=== PATIENT | male | born 1960 | race Caucasian/White ===

== ENCOUNTER 2017-03-09 19:25 | Emergency (ER) | payer SELFPAY ==
[~2017-03-09] VITALS: Ht 185.4 cm; Wt 78.0 kg
[2017-03-09 19:28] VITALS: BP 156/98
[2017-03-09 19:59] LABS: BASOPHILS % (AUTO) 0.5 % (0.0-2.0); HEMATOCRIT 41.6 % (41-53); HEMOGLOBIN 14.2 g/dL (13.5-17.5); LYMPHOCYTES # (AUTO) 1.4 K/uL (1.0-4.8); LYMPHOCYTES % (AUTO) 18.3 % (22.0-44.0); MEAN CORPUSCULAR HEMOGLOBIN 32.1 pg (26.0-34.0); MEAN CORPUSCULAR VOLUME 95 fL (80-100); MONOCYTES # (AUTO) 0.7 K/uL (0.1-1.0); MONOCYTES % (AUTO) 8.9 % (2.0-9.0); NEUTROPHILS # (AUTO) 5.5 K/uL (1.8-7.7); NEUTROPHILS % (AUTO) 71.3 % (40.0-70.0); PLATELET COUNT (AUTO) 312 K/uL (150-450); RED CELL DISTRIBUTION WIDTH 13.2 % (11.5-14.5)
[2017-03-09 20:21] LABS: ANION GAP -6 mmol/L (8-16); CALCIUM, TOTAL 9.3 mg/dL (8.8-10.5); CARBON DIOXIDE 35 mmol/L (22-29); CHLORIDE 110 mmol/L (98-107); CREATININE 0.93 mg/dL (0.60-1.30); GLOMERULAR FILTR. RATE CALC > 60 mL/min (>60); GLUCOSE,RANDOM 108 mg/dL (70-110); POTASSIUM 3.7 mmol/L (3.5-5.1); SODIUM SERUM 139 mmol/L (136-145); UREA NITROGEN, BLOOD 18 mg/dL (7-18)
[2017-03-09 20:27] LABS: ALANINE AMINOTRANSFERASE 122 U/L (12-78); ALBUMIN 3.7 g/dL (3.4-5.0); ALKALINE PHOSPHATASE 61 U/L (46-116); ASPARTATE AMINOTRANSFERASE 97 U/L (15-37); BILIRUBIN,TOTAL 1.1 mg/dL (0.1-1.0); TOTAL PROTEIN, SERUM 7.4 g/dL (6.4-8.2)
== END 2017-03-09 22:40 | disposition left against medical advice (07) ==
LOC: EMS 19:28
DX: Z53.21 Procedure and treatment not carried out due to patient leaving prior to being seen by health care provider (principal)
CPT/HCPCS: 36415; 80053; 85025; 99281; G0480

== ENCOUNTER 2017-03-10 02:16 | Emergency (ER) | payer SELFPAY ==
[~2017-03-10] VITALS: Ht 185.4 cm; Wt 78.0 kg
[2017-03-10 06:39] LABS: BASOPHILS % (AUTO) 0.2 % (0.0-2.0); HEMATOCRIT 43.9 % (41-53); HEMOGLOBIN 14.9 g/dL (13.5-17.5); LYMPHOCYTES # (AUTO) 1.5 K/uL (1.0-4.8); LYMPHOCYTES % (AUTO) 16.2 % (22.0-44.0); MEAN CORPUSCULAR HEMOGLOBIN 32.3 pg (26.0-34.0); MEAN CORPUSCULAR HGB CONC 33.8 G/dL (31.0-37.0); MEAN CORPUSCULAR VOLUME 95 fL (80-100); MONOCYTES # (AUTO) 0.7 K/uL (0.1-1.0); MONOCYTES % (AUTO) 7.7 % (2.0-9.0); NEUTROPHILS # (AUTO) 7.1 K/uL (1.8-7.7); NEUTROPHILS % (AUTO) 74.9 % (40.0-70.0); PLATELET COUNT (AUTO) 325 K/uL (150-450); RED BLOOD CELL COUNT(AUTO) 4.61 MIL/uL (4.50-5.90); RED CELL DISTRIBUTION WIDTH 13.5 % (11.5-14.5)
[2017-03-10 06:52] LABS: ANION GAP 6 mmol/L (8-16); CARBON DIOXIDE 33 mmol/L (22-29); CHLORIDE 102 mmol/L (98-107); GLOMERULAR FILTR. RATE CALC > 60 mL/min (>60); GLUCOSE,RANDOM 105 mg/dL (70-110); POTASSIUM 3.5 mmol/L (3.5-5.1); SODIUM SERUM 141 mmol/L (136-145); UREA NITROGEN, BLOOD 12 mg/dL (7-18)
[2017-03-10 06:58] LABS: ALANINE AMINOTRANSFERASE 113 U/L (12-78); ALKALINE PHOSPHATASE 67 U/L (46-116); ASPARTATE AMINOTRANSFERASE 89 U/L (15-37); BILIRUBIN,TOTAL 1.1 mg/dL (0.1-1.0); TOTAL PROTEIN, SERUM 7.8 g/dL (6.4-8.2)
[2017-03-10 07:46] VITALS: BP 138/69
[2017-03-10 08:41] LABS: AMPHET/METH SCREEN,URINE NEGATIVE (NEGATIVE); BARBITURATE SCREEN, URINE NEGATIVE (NEGATIVE); BENZODIAZEPINES SCREEN,URINE NEGATIVE (NEGATIVE); CANNABINOID SCREEN,URINE POSITIVE (NEGATIVE); COCAINE SCREEN,URINE NEGATIVE (NEGATIVE); METHADONE SCREEN, URINE NEGATIVE (NEGATIVE); OPIATE SCREEN,URINE NEGATIVE (NEGATIVE)
[2017-03-10 08:42] LABS: PHENCYCLIDINE SCREEN,URINE NEGATIVE (NEGATIVE)
[2017-03-10] MEDS ORDERED: KETOROLAC TROMETHAMINE 60 MG/2 ML VIAL IM ONE (08:45)
== END 2017-03-10 08:57 | disposition home or self-care (01) ==
LOC: EMS 02:16
DX: M72.2 Plantar fascial fibromatosis (principal); M54.5 Low back pain; I10 Essential (primary) hypertension
CPT/HCPCS: 36415; 80053; 80307; 85025; 96372; 99284; G0480; J1885

== ENCOUNTER 2017-04-02 14:30 | Inpatient (IN) | payer MEDICAID ==
[~2017-04-02] VITALS: Ht 182.9 cm; Wt 78.7 kg
[2017-04-02] MEDS ORDERED: HALOPERIDOL 5 MG TABLET PO PRN (18:15)
[2017-04-02 18:19] VITALS: BP 123/92
[2017-04-02] MEDS ORDERED: LAMO25 PO (18:23)
[2017-04-02] MEDS ORDERED: AMLO-511 PO (18:23)
[2017-04-02] MEDS ORDERED: ARIP5TAB8 PO (18:24)
[2017-04-02] MEDS ORDERED: INFLUENZA VIRUS VACCINE QVS 2017-18 (3YR+)/PF 60 MCG/0.5 ML SYRINGE IM ONE (19:30)
[2017-04-02] MEDS ORDERED: PNEUMOCOCCAL VACCINE POLYVALENT 0.5 ML VIAL [PPSV23] IM ONE (19:30)
[2017-04-02] MEDS: ZOLPIDEM TARTRATE 10 MG TABLET PO PRN (20:18)
[2017-04-02] MEDS ORDERED: BACITRACIN 28.4 GM OINTMENT TP PRN (21:30)
[2017-04-02 21:51] VITALS: BP 130/89
[2017-04-03 01:45] VITALS: BP 125/83
[2017-04-03] MEDS: IBUPROFEN 400 MG TABLET PO PRN ×2 (01:52→10:01)
[2017-04-03 07:43] LABS: BASOPHILS % (AUTO) 0.5 % (0.0-2.0); EOSINOPHILS % (AUTO) 1.6 % (1.0-6.0); HEMATOCRIT 41.1 % (41-53); HEMOGLOBIN 13.9 g/dL (13.5-17.5); LYMPHOCYTES % (AUTO) 26.8 % (22.0-44.0); MEAN CORPUSCULAR HEMOGLOBIN 32.2 pg (26.0-34.0); MEAN CORPUSCULAR HGB CONC 33.9 G/dL (31.0-37.0); MEAN CORPUSCULAR VOLUME 95 fL (80-100); MONOCYTES # (AUTO) 0.6 K/uL (0.1-1.0); MONOCYTES % (AUTO) 8.6 % (2.0-9.0); NEUTROPHILS # (AUTO) 4.6 K/uL (1.8-7.7); NEUTROPHILS % (AUTO) 62.5 % (40.0-70.0); PLATELET COUNT (AUTO) 288 K/uL (150-450); RED BLOOD CELL COUNT(AUTO) 4.33 MIL/uL (4.50-5.90); RED CELL DISTRIBUTION WIDTH 13.3 % (11.5-14.5)
[2017-04-03 08:01] LABS: ALANINE AMINOTRANSFERASE 69 U/L (12-78); ALBUMIN 3.8 g/dL (3.4-5.0); ALKALINE PHOSPHATASE 64 U/L (46-116); ANION GAP 6 mmol/L (8-16); ASPARTATE AMINOTRANSFERASE 51 U/L (15-37); BILIRUBIN,TOTAL 1.3 mg/dL (0.1-1.0); CALCIUM, TOTAL 9.1 mg/dL (8.8-10.5); CARBON DIOXIDE 31 mmol/L (22-29); CHLORIDE 97 mmol/L (98-107); CREATININE 0.73 mg/dL (0.60-1.30); GLOMERULAR FILTR. RATE CALC > 60 mL/min (>60); GLUCOSE,RANDOM 77 mg/dL (70-110); POTASSIUM 4.5 mmol/L (3.5-5.1); SODIUM SERUM 134 mmol/L (136-145); TOTAL PROTEIN, SERUM 7.2 g/dL (6.4-8.2); UREA NITROGEN, BLOOD 12 mg/dL (7-18)
[2017-04-03 08:57] VITALS: BP 142/95
[2017-04-03] MEDS: AmLODIPine BESYLATE 5 MG TABLET PO SCH (09:52)
[2017-04-03] MEDS: LORazepam 2 MG TABLET PO PRN (16:52)
[2017-04-03 16:53] VITALS: BP 135/78
[2017-04-03] MEDS: ACETAMINOPHEN 325 MG TABLET PO PRN (16:54)
[2017-04-04] MEDS: IBUPROFEN 400 MG TABLET PO PRN ×2 (04:05→14:56)
[2017-04-04 05:00] VITALS: BP 144/87
[2017-04-04] MEDS: AmLODIPine BESYLATE 5 MG TABLET PO SCH (07:53)
[2017-04-04 08:15] VITALS: BP 143/98
[2017-04-04 08:19] LABS: HEMOGLOBIN A1C 5.7 % (4.5-6.2)
[2017-04-04 08:44] LABS: THYROID STIMULATING HORMONE 2.21 uIU/mL (0.36-3.74)
[2017-04-04 14:53] VITALS: BP 145/104
[2017-04-04 16:00] VITALS: BP 137/80
[2017-04-04] MEDS: LORazepam 2 MG TABLET PO PRN (16:20)
[2017-04-04] MEDS: ACETAMINOPHEN 325 MG TABLET PO PRN (16:47)
[2017-04-04] MEDS: ZOLPIDEM TARTRATE 10 MG TABLET PO PRN (20:10)
[2017-04-05 02:07] VITALS: BP 140/83
[2017-04-05] MEDS: LORazepam 2 MG TABLET PO PRN ×2 (02:13→16:43)
[2017-04-05] MEDS: IBUPROFEN 400 MG TABLET PO PRN ×2 (02:13→11:10)
[2017-04-05 08:15] LABS: CHOL/HDL RATIO 2.7 (4.2-7.3)
[2017-04-05 09:07] VITALS: BP 136/82
[2017-04-05] MEDS: AmLODIPine BESYLATE 5 MG TABLET PO SCH (10:07)
[2017-04-05] MEDS: LamoTRIgine 25 MG TABLET PO SCH ×2 (10:58→16:43)
[2017-04-05] MEDS: ARIPiprazole 5 MG TABLET PO SCH ×2 (11:04→16:43)
[2017-04-05 16:30] VITALS: BP 130/84
[2017-04-06] MEDS: ZOLPIDEM TARTRATE 10 MG TABLET PO PRN (00:47)
[2017-04-06 01:32] VITALS: BP 141/110
[2017-04-06] MEDS: AmLODIPine BESYLATE 5 MG TABLET PO SCH (07:59)
[2017-04-06] MEDS: ARIPiprazole 5 MG TABLET PO SCH (07:59)
[2017-04-06] MEDS: LamoTRIgine 25 MG TABLET PO SCH (08:00)
[2017-04-06 09:58] VITALS: BP 131/79
== END 2017-04-06 13:15 | disposition home or self-care (01) | DRG 750 ==
LOC: B2S 18:21
PROVIDERS: ADMIT Psychiatry & Neurology Child & Adolescent Psychiatry; ATTEND Psychiatry & Neurology Child & Adolescent Psychiatry
PROC: 3E0234Z Introduction of Serum, Toxoid and Vaccine into Muscle, Percutaneous Approach (ICD-10-PCS; principal; 2017-04-02)
DX: F20.9 Schizophrenia, unspecified (principal); E87.1 Hypo-osmolality and hyponatremia; I10 Essential (primary) hypertension; F99 Mental disorder, not otherwise specified; F19.10 Other psychoactive substance abuse, uncomplicated; F10.10 Alcohol abuse, uncomplicated; G89.29 Other chronic pain; M54.9 Dorsalgia, unspecified; Z91.048 Other nonmedicinal substance allergy status; Z79.899 Other long term (current) drug therapy; Z23 Encounter for immunization
CPT/HCPCS: 83036; 84443; 87081